=== PATIENT | male | born 1940 | race Caucasian/White ===

== ENCOUNTER 2023-07-02 09:33 | Day surgery (SDC) | payer MEDICARE, OTHER ==
[2023-07-02] MEDS: Proparacaine 0.5% Ophth Soln 15 ML Bottle EYERT ONE ×3 (07:08→10:24)
[2023-07-02] MEDS: Povidone-Iodine 5% Sterile Ophth Soln 30 ML Bottle EYERT ONE ×3 (07:09→10:24)
[2023-07-02] MEDS: Lidocaine 1% 30 ML SDV ONE ×3 (07:09→10:38)
[2023-07-02] MEDS: Vancomycin 500 MG SDV EYERT ONE ×3 (07:10→10:38)
[2023-07-02] MEDS: Balanced Salt Solution Ophth Irrig 500 ML Bottle IOCULAR ONE ×3 (07:10→10:38)
[2023-07-02] MEDS: Chondroitin Sulfate/Hyaluronate Sodium Ophth Inj 0.75 ML Syringe EYERT ONE ×3 (07:11→10:38)
[2023-07-02] MEDS: Apraclonidine 0.5% Ophth Soln 5 ML Bot EYERT ONE ×2 (07:12→10:40)
[2023-07-02] MEDS: Diclofenac Sodium 0.1% Ophth Soln 5 ML Bottle EYERT ONE ×2 (07:12→10:40)
[2023-07-02] MEDS: Dexamethasone/Neomycin/Polymyxin B Ophth Oint 3.5 GM Tube EYERT ONE ×2 (07:13→10:40)
[2023-07-02] MEDS ORDERED: Ondansetron 4 MG/2 ML SDV IVPUSH PRN (09:45)
[2023-07-02] MEDS ORDERED: Sodium Chloride 0.9% 10 ML Syringe FLUSH PRN (09:45)
[2023-07-02] MEDS ORDERED: Acetaminophen/Codeine 300-30 MG Tab PO PRN (09:45)
[2023-07-02] MEDS ORDERED: Acetaminophen 325 MG Tab PO PRN (09:45)
[2023-07-02] MEDS: Timolol Maleate 0.5% Ophth Soln 5 ML Bottle EYERT ONE (09:53)
[2023-07-02] MEDS: Tropicamide 1% Ophth Soln 15 ML Bottle EYERT ONE (09:53)
[2023-07-02] MEDS: Phenylephrine 10% Ophth Soln 5 ML Bot EYERT ONE (09:53)
[2023-07-02] MEDS: Cataract Ophth Solution EYERT ONE (09:54)
[2023-07-02] MEDS: Moxifloxacin 0.5% Ophth Soln 3 ML Bottle EYERT ONE (09:54)
== END 2023-07-02 11:15 | disposition home or self-care (01) ==
LOC: DL.SDS 09:33
PROVIDERS: ATTEND Ophthalmology
DX: H25.811 Combined forms of age-related cataract, right eye (principal); H40.1111 Primary open-angle glaucoma, right eye, mild stage; I10 Essential (primary) hypertension; E03.9 Hypothyroidism, unspecified; N40.0 Benign prostatic hyperplasia without lower urinary tract symptoms; Z79.899 Other long term (current) drug therapy
CPT/HCPCS: 66991; A9270; C1783; J3370; V2632; 00142; 99100; J3490